=== PATIENT | female | born 1995 | race Caucasian/White ===

== ENCOUNTER → 2019-09-20 | Outpatient (REF) | LOC: M LAB 15:58 | PROVIDERS: ATTEND Nurse Practitioner Adult Health | DX: Z00.00 Encounter for general adult medical examination without abnormal findings (principal) ==

== ENCOUNTER → 2019-09-24 | Outpatient (REF) | LOC: M LAB 12:09 | PROVIDERS: ATTEND Nurse Practitioner Adult Health | DX: Z00.00 Encounter for general adult medical examination without abnormal findings (principal) ==

== ENCOUNTER 2019-10-21 12:27 | Emergency (ER) | payer OTHER ==
[~2019-10-21] VITALS: Ht 160 cm; Wt 68.2 kg
--- NOTE | 2019-10-21 14:30 | REP ---
LEFT INGUINAL ULTRASOUND: Real-time sonographic evaluation of the left inguinal region performed for a palpable lump. There is an enlarged lymph node at that location with internal blood flow with duplex Doppler evaluation. There is an echogenic hilum. The enlarged lymph node measures 2.3 x 1.1 x 1.3 cm. Differential diagnosis would include inflammatory or infectious etiologies versus neoplastic etiology. Electronically Signed by Gary Guo MD 10/21/2019 03:26 P
[2019-10-21 14:41] VITALS: BP 124/73
--- NOTE | 2019-10-22 11:43 | ED PDOC ---
Post-Departure Follow-Up dr [email or web address] faxed formal report of pelvis us for fu Teena Alarcon MD Oct 22, 2019 11:43
== END 2019-10-21 14:56 | disposition home or self-care (01) ==
LOC: M ED 12:27
DX: R59.0 Localized enlarged lymph nodes (principal); M26.69 Other specified disorders of temporomandibular joint; F17.210 Nicotine dependence, cigarettes, uncomplicated; Z88.1 Allergy status to other antibiotic agents